=== PATIENT | female | born 1995 | race Caucasian/White ===

== ENCOUNTER 2016-09-26 22:58 | Outpatient (CLI) | payer MEDICAID, OTHER ==
[~2016-09-26] VITALS: Ht 157.5 cm; Wt 104.1 kg
[~2016-09-26 22:58] MED LIST: CEPH-443 PO; ZOF8 PO
[2016-09-26 23:09] VITALS: BP 109/64; PULSE 106; RESP 18; Ht 157.5 cm; Wt 104.1 kg
--- NOTE | 2016-09-27 00:52 | RADRPT ---
PROCEDURE: US OB. CLINICAL INDICATION: Contractions TECHNIQUE: Pelvic ultrasound performed for biophysical profile. COMPARISON: No relevant examinations are available FINDINGS: Single intrauterine gestation present with heart rate at 139 beats per minute. Presentation is ceph alic. Placenta is fundal, grade II. Biophysical profile score is 8/8 (breathing=2, movement=2, ton e =2, fluid volume=2). Amniotic fluid volume is within normal limits, with ELIAN = 17.6 cm. RPTAT:HJJR IMPRESSION: Biophysical profile score 8/8. Physician Denisse Date Time Electronically viewed and signed by Physician Denisse on 09/27/2016 00:51 /
[2016-09-27 01:28] LABS: ADD UMIC YES; URINE BILIRUBIN (Dip) NEGATIVE (NEGATIVE); URINE BLOOD (Dip) 3+ (NEGATIVE); URINE COLOR YELLOW (YELLOW); URINE GLUCOSE (Dip) NEGATIVE (NEGATIVE); URINE KETONES (Dip) NEGATIVE (NEGATIVE); URINE LEUKOCYTE ESTERASE (Dip) 3+ (NEGATIVE); URINE NITRITE (Dip) NEGATIVE (NEGATIVE); URINE TOTAL PROTEIN (Dip) TRACE (NEGATIVE); URINE UROBILINOGEN (Dip) 0.2 E.U./dL (0.1-1.0)
[2016-09-27 01:45] LABS: BACTERIA,URINE MANY; SQUAMOUS EPITHELIAL CELL,UR MANY
[2016-09-27 01:46] LABS: MUCUS,URINE MANY
--- NOTE | 2016-09-27 02:05 | RADRPT ---
PROCEDURE: ULTRASOUND OBSTETRICAL CLINICAL INDICATION: 21-year-old female with contractions for cervical length evaluation. TECHNIQUE: Multiple sonographic images of the pelvis were obtained. The images were reviewed on a PACS workstation. COMPARISON: Ultrasound biophysical profile September 27, 2016; ultrasound OB May 28, 2015. FINDINGS: The cervix is closed with a length of 4.7 cm measured transvaginally. IMPRESSION: The cervix has a length of 4.7 cm. .Matt Nobles MD, MD Date Time Electronically viewed and signed by .Matt Nobles MD, MD on 09/27/2016 02:05 .Ashley/
--- NOTE | 2016-09-27 04:14 | PN ---
Triage Information Date/Time September 27, 2016 Weeks of Gestation 33 weeks and 6 days : 2 Para: 1 Diabetes: none Hypertention: none Additional information 21-year-old with IUP at 33 weeks and 6 days with a history of stillbirth and prior at 39 weeks and care with , here today with complaint of uterine contractions. Patient accompanied by her mother. She is very anxious due to past traumatic history. She denies any leaking of fluid, vaginal bleeding or decreased movement. She is complaining of low back pain and lower abdominal pain. Reports lower abdominal pain constant increase with changing in position. She denies any dysuria, frequency or urinary symptoms. Objective Vital Signs Date Time Temp Pulse Resp B/P Pulse Ox O2 Delivery O2 Flow Rate FiO2 09/26/16 23:09 97.9 106 18 109/64 Room Air Results/Medications Results 24 hrs Laboratory Tests Test 09/27/16 00:42 09/27/16 00:58 Urine Color YELLOW Urine Clarity CLEAR Urine pH 6.0 Urine Specific [place] 1.020 Urine Ketones NEGATIVE Urine Nitrite NEGATIVE Urine Bilirubin NEGATIVE Urine Urobilinogen 0.2 E.U./dL Urine Leukocyte Esterase 3+ H Urine Microscopic RBC 10-25 Urine Microscopic WBC >50 Urine Squamous Epithelial Cells MANY Urine Bacteria MANY Urine Mucus MANY Urine Hemoglobin 3+ H Urine Glucose NEGATIVE Urine Total Protein TRACE Fibronectin NEGATIVE Imaging Results PROCEDURE: US OB. CLINICAL INDICATION: Contractions TECHNIQUE: Pelvic ultrasound performed for biophysical profile. COMPARISON: No relevant examinations are available FINDINGS: Single intrauterine gestation present with heart rate at 139 beats per minute. Presentation is cephalic. Placenta is fundal, grade II. Biophysical profile score is 8/8 (breathing=2, movement=2, tone =2, fluid volume=2). Amniotic fluid volume is within normal limits, with ELIAN = 17.6 cm. RPTAT:HJJR IMPRESSION: Biophysical profile score 8/8 PROCEDURE: ULTRASOUND OBSTETRICAL CLINICAL INDICATION: 21-year-old female with contractions for cervical length evaluation. TECHNIQUE: Multiple sonographic images of the pelvis were obtained. The images were reviewed on a PACS workstation. COMPARISON: Ultrasound biophysical profile September 27, 2016; ultrasound OB May 28, 2015. FINDINGS: The cervix is closed with a length of 4.7 cm measured transvaginally. IMPRESSION: The cervix has a length of 4.7 cm Assessment/Plan IUP at 33 weeks and 6 days Lower abdominal pain, round ligament pain Patient was reassured Low back pain, due to Patient had been observed for a couple hours. No contractions seen on the monitor. testing reassuring. Patient was reassured No evidence of labor. She was given strict labor precaution and kick counts and follow-up in 2-3 days with her primary OB Patient verbalized understanding Recommended to have testing twice a week from now on until term with a plan to be induced at 39 weeks considering normal course Patient and her mother verbalized understanding.. She agreed to comply with instruction. JOSIE GUARDADO MD Sep 27, 2016 04:14
--- NOTE | 2016-09-27 05:15 | TRIAGE ---
OB Triage Datetime Report Generated by CPN: 09/27/2016 05:15 Datetime: 09/27/2016 03:27 Labor Evaluation Frequency: N/A Monitor Mode: External Resting Tone [place]: Relaxed Heart Rate FHR Baseline Rate: 135 Monitor Mode: External US FHR Baseline Changes: No Baseline Change Variability: Moderate 6-25 bpm Accelerations: 15X15 Decelerations: None Category: Category I Datetime: 09/27/2016 02:50 Labor Evaluation Frequency: N/A Monitor Mode: External Resting Tone [place]: Relaxed Interventions: Side to Side Heart Rate FHR Baseline Rate: 135 Monitor Mode: External US FHR Baseline Changes: No Baseline Change Variability: Moderate 6-25 bpm Accelerations: 15X15 Decelerations: None Category: Category I Comments: Loss of FHR contact d/t pt self-repositioning. Datetime: 09/27/2016 02:06 Temperature Route: Oral Pain Assessment Pain Scale: 0 Pain Presence: None/Denies Pain Type: N/A Datetime: 09/27/2016 01:50 Labor Evaluation Frequency: N/A Monitor Mode: External Resting Tone [place]: Relaxed Contraction Comments: Uterine activity noted. Heart Rate FHR Baseline Rate: 145 Monitor Mode: External US FHR Baseline Changes: No Baseline Change Variability: Moderate 6-25 bpm Accelerations: 15X15 Decelerations: None Category: Category I Comments: Periods of loss of FHR contact d/t pt self-repositioning Datetime: 09/27/2016 00:50 Labor Evaluation Frequency: N/A Monitor Mode: External Resting Tone [place]: Relaxed Contraction Comments: Uterine activity noted Heart Rate FHR Baseline Rate: 135 Monitor Mode: External US FHR Baseline Changes: No Baseline Change Variability: Moderate 6-25 bpm Accelerations: 15X15 Decelerations: None Category: Category I Comments: Periods of loss of FHR contact d/t pt self repositioning Datetime: 09/26/2016 23:50 Labor Evaluation Frequency: N/A Monitor Mode: External Resting Tone [place]: Relaxed Heart Rate FHR Baseline Rate: 135 Monitor Mode: External US FHR Baseline Changes: No Baseline Change Variability: Moderate 6-25 bpm Accelerations: 15X15 Decelerations: None Category: Category I Comments: Periods of loss of FHR contact d/t pt self-repositioning Datetime: 09/26/2016 23:17 EGA: 33.5 Datetime: 09/26/2016 23:10 Assessment Type: Triage Maternal Assessment Level of Consciousness: Fully Conscious DTR's/Clonus: DTRs 2+; No Clonus Headache: Denies Blurred Vision: No Respiratory Effort: Unlabored; Regular Rhythm; Equal Expansion Breath Sounds, Left: Clear and Equal Breath Sounds, Right: Clear and Equal Nausea/Vomiting: Denies RUQ Epigastric Pain: Denies Lower Extremities Edema: None Degree: None Upper Extremities Edema: None Degree: None Facial Edema: None Fall Risk Assessment History of Falling: (0) No Secondary Diagnosis: (0) No Ambulatory Aid: (0) Bedrest/Nurse Assist IV Therapy: (0) No Gait: (0) Normal/Bedrest/Immobile Mental Status: (0) Oriented to Own Ability Fall Score: 0 Fall Risk Score Definition: No Risk: No action required Datetime: 09/26/2016 23:08 Resting Tone [place]: Relaxed Datetime: 09/26/2016 23:01 Stage of : OB Triage Datetime: 09/26/2016 22:52 Time of Arrival: 09/26/2016 22:52 Arrived By: Wheelchair Arrived From: Emergency Dept Chief Complaint: CONTRACTIONS; ABDOMINAL PAIN; BACK PAIN Movement: Decreased Contractions: Irregular Time Contractions Began: 09/26/2016 10:00 Contractions: q 20-30min Rupture of Membranes: Denies Vaginal Bleeding: None Vaginal Discharge: Denies Recent Sexual Intercouse: Denies Abdominal Trauma: Not Applicable Patient Complaints: Contractions Time Provider Notified: 09/26/2016 23:53 Provider Notified: MD WAGNER Initial Plan: OBSERVATION, BPP, FFN, CERVICAL LENGTH, UA
== END 2016-09-27 03:34 | disposition home or self-care (01) ==
LOC: OBT 22:58 → L-D 23:01 → OBT 09-27 03:34
PROVIDERS: ATTEND Obstetrics & Gynecology
DX: O09.293 Supervision of pregnancy with other poor reproductive or obstetric history, third trimester (principal); R10.30 Lower abdominal pain, unspecified; R10.2 Pelvic and perineal pain; M54.5 Low back pain; O62.9 Abnormality of forces of labor, unspecified; O99.343 Other mental disorders complicating pregnancy, third trimester; F41.9 Anxiety disorder, unspecified; Z3A.33 33 weeks gestation of pregnancy
CPT/HCPCS: 76817; 76818; 81001; 82731; 87086; Z7500; G0463

== ENCOUNTER 2016-10-08 15:28 | Outpatient (CLI) | payer OTHER ==
[~2016-10-08] VITALS: Ht 157.5 cm; Wt 103.8 kg
[~2016-10-08 15:28] MED LIST changes: -ZOF8 PO
[2016-10-08 16:25] VITALS: Ht 157.5 cm; Wt 103.8 kg
[2016-10-08] MEDS ORDERED: PRENAT PO (16:27)
--- NOTE | 2016-10-08 17:02 | RADRPT ---
PROCEDURE: US OB biophysical profile. CLINICAL INDICATION: evaluation TECHNIQUE: Multiple sonographic images of the pelvis were obtained. The images were reviewed on a PACS workstation. COMPARISON: Obstetrical ultrasound from 09/27/2016 FINDINGS: There is a single viable intrauterine gestation. Cardiac activity is present with 146 beats per min sabino. There is a vertex presentation. The placenta is posterior and fundal. There is no evidence of placental abruption. There is a normal amount of amniotic fluid with an ELIAN = 13.6 cm. Biophysical profile: movement 2/2 tone 2/2. breathing 2/2 ELIAN 2/2 Total 11/27 RPTAT: AA . IMPRESSION: Normal biophysical profile. Physician Jacinda Date Time Electronically viewed and signed by Physician Jacinda on 10/08/2016 17:02 /
--- NOTE | 2016-10-08 17:04 | RADRPT ---
PROCEDURE: Obstetrical ultrasound CLINICAL INDICATION: HX OF DEMISE BABY TECHNIQUE: Multiple sonographic images of the pelvis were obtained. The images were reviewed on a PACS workstation. COMPARISON: Obstetrical ultrasound from 09/27/2016 FINDINGS: The cervix is not well visualized. There is a single viable intrauterine gestation. Cardiac activity is present with 143 beats per minute. There is a vertex presentation. The placenta is posterior and fundal. There is no evidence for an abruption or placenta previa. There is a normal amount of amniotic fluid with an ELIAN = 13.5 cm. Measurements were made in order to determine age. The results are as follows (cm): BPD =8.75 HC =31.69 AC =31.27 FL =6.81 Estimated gestational age by ultrasound of approximately 35 weeks, 2 days. The estimated date of delivery by ultrasound is 11/10/2016. Estimated gestational age by LMP of approximately 35 weeks, 3 days. The estimated date of delivery by LMP is 11/09/2016. EFW = 2619 grams (41st percentile) IMPRESSION: Single viable intrauterine gestation of approximately 35 weeks, 2 days . The estimated date of delivery is 11/10/2016 . Dating by ultrasound is within 1 day of dating by LMP. Cephalic presentation. Normal ELIAN. Estimated weight is in the 41st percentile. RPTAT: EE Physician Jacinda Date Time Electronically viewed and signed by Physician Jacinda on 10/08/2016 17:03 /
--- NOTE | 2016-10-08 17:15 | TRIAGE ---
OB Triage Datetime Report Generated by CPN: 10/08/2016 17:15 Datetime: 10/08/2016 15:43 Stage of : OB Triage Assessment Type: Triage Maternal Assessment Level of Consciousness: Fully Conscious DTR's/Clonus: DTRs 2+; No Clonus Headache: Denies Blurred Vision: No Respiratory Effort: Unlabored; Regular Rhythm; Equal Expansion Breath Sounds, Left: Clear and Equal Breath Sounds, Right: Clear and Equal Nausea/Vomiting: Denies RUQ Epigastric Pain: Denies Lower Extremities Edema: None Degree: None Upper Extremities Edema: None Degree: None Facial Edema: None Temperature Route: Axillary Fall Risk Assessment History of Falling: (0) No Secondary Diagnosis: (0) No Ambulatory Aid: (0) Bedrest/Nurse Assist IV Therapy: (0) No Gait: (0) Normal/Bedrest/Immobile Mental Status: (0) Oriented to Own Ability Fall Score: 0 Fall Risk Score Definition: No Risk: No action required Datetime: 10/08/2016 15:30 Time of Arrival: 10/08/2016 15:30 EGA: 35.3 Arrived By: Ambulatory Arrived From: Office Chief Complaint: NST, BPP, EFW Movement: Present Rupture of Membranes: Denies Vaginal Bleeding: None Vaginal Discharge: Denies Recent Sexual Intercouse: Denies Abdominal Trauma: Not Applicable Patient Complaints: None Time Provider Notified: 10/08/2016 17:10 Provider Notified: KRISTY Initial Plan: NST, BPP, EFW Datetime: 09/26/2016 23:17 EGA: 33.5 Datetime: 09/26/2016 23:10 Fall Score: 0 Fall Risk Score Definition: No Risk: No action required
--- NOTE | 2016-10-08 18:26 | CONS ---
Date/Time of Note Date/Time of Note DATE: 10/08/16 TIME: 18:06 Consultation Date/Type/Reason Admit Date/Time October 08, 2016 OB triage consult Reason for Consultation This patient is a 21 years old 2 para 1 who had a history of demise at age 39 during her past . on general examination her vital signs are basically within normal limits; blood pressure 103/74, pulse rate 99, respiration 18, Her abdomen is soft ,does not have much of a contraction ,baby appears to be in vertex presentation Constitutional: No chills, No diaphoresis, No disoriented, No febrile, No improved, No no complaints, No other, No poor po, No requiring IVF, No requiring O2 Eyes: discharge, No no complaints, No other, No pain, No redness, No visual change ENT: No bleeding, No congestion, No discharge, No dysphagia, No no complaints, No other, No pain, No sore throat Respiratory: No cough, No no complaints, No other, No pain, No pleuritic pain, No shortness of breath, No sputum, No wheezing Cardiovascular: No chest pain, No edema, No lightheadedness, No no complaints, No orthopenea, No other, No palpitations, No paroxysmal nocturnal dyspnea Gastrointestinal: No blood, No constipation, No decreased appetite, No diarrhea , No flatus, No nausea, No no complaints, No other, No pain, No passing stool, No vomiting Genitourinary: other (Due to lack of contractions the pelvic examination was not performed), No bleeding, No discharge, No dysuria, No flank pain, No hematuria, No no complaints Musculoskeletal: No back pain, No bone/joint pain, No neck pain, No no complaints, No other, No restricted range of motion, No swelling Skin: No bruising, No erythema, No laceration, No no complaints, No other, No pruritis, No rash, No skin lesions Neurologic: other (Her knee jerks reflexes normal), No confusion, No dizziness, No focal-weakness, No headache, No no complaints , No seizure, No syncope Endocrine: No dry skin, No no complaints, No other, No polydypsia, No polyuria , No temp intolerance Lymphatic: No adenopathy, No lymphadema, No no complaints, No other, No tender nodes Psychological: No anxiety, No confusion, No depression, No nl mood/affect, No no complaints, No other, No suicidal Additional Comments Her biophysical profile was 11/27 ELIAN is 13.5 cm Estimated weight was 2619 g With these positive finding patient was discharged home and will return later for another set of monitoring Social History Smoking Status: Never smoker RICKY IBARRA MD Oct 08, 2016 18:17
== END 2016-10-08 18:32 | disposition home or self-care (01) ==
LOC: OBT 15:28 → L-D 15:28 → OBT 18:32
PROVIDERS: ATTEND Obstetrics & Gynecology
DX: O09.293 Supervision of pregnancy with other poor reproductive or obstetric history, third trimester (principal); Z3A.35 35 weeks gestation of pregnancy
CPT/HCPCS: 76815; 76818

== ENCOUNTER 2016-10-10 22:00 | Outpatient (CLI) | payer OTHER ==
[~2016-10-10] VITALS: Ht 157.5 cm; Wt 104.8 kg
[~2016-10-10 22:00] MED LIST changes: -CEPH-443 PO; +PRENAT PO
[2016-10-10 22:24] VITALS: Ht 157.5 cm; Wt 104.8 kg
[2016-10-10 22:58] LABS: ADD SCAN DIFF NO
[2016-10-10 23:15] LABS: BASOPHILS % 0.3 % (0.0-2.0); EOSINOPHILS # 0.1 10^3/ul (0.0-0.5); HEMATOCRIT 33.2 % (37.0-47.0); HEMOGLOBIN 11.6 g/dl (12.0-16.0); LYMPHOCYTES # 1.9 10^3/ul (0.8-2.9); LYMPHOCYTES % 26.9 % (15.0-51.0); MEAN CORPUSCULAR HEMOGLOBIN 30.8 pg (29.0-33.0); MEAN CORPUSCULAR HGB CONC 34.9 g/dl (32.0-37.0); MEAN CORPUSCULAR VOLUME 88.1 fl (82.0-101.0); MEAN PLATELET VOLUME 10.7 fl (7.4-10.4); MONOCYTE # 0.5 10^3/ul (0.3-0.9); MONOCYTES % 6.7 % (0.0-11.0); NEUTROPHIL # 4.5 10^3/ul (1.6-7.5); NEUTROPHILS % 64.7 % (39.0-77.0); PLATELET COUNT 242 10^3/UL (140-415); RED BLOOD COUNT 3.77 10^6/ul (4.20-5.40); RED CELL DISTRIBUTION WIDTH 13.7 % (11.5-14.5); WHITE BLOOD COUNT 6.9 10^3/ul (4.8-10.8)
[2016-10-10 23:21] LABS: ALBUMIN/GLOBULIN RATIO 1.37; BILIRUBIN,INDIRECT 0.1 mg/dl (0-1.1); BILIRUBIN,TOTAL 0.1 mg/dl (0.2-1.3); CALCIUM 9.3 mg/dl (8.4-10.2); CREATININE 0.81 mg/dl (0.44-1.00); POTASSIUM 3.7 mmol/L (3.5-5.1); TOTAL PROTEIN 6.9 g/dl (6.1-8.1)
--- NOTE | 2016-10-10 23:32 | RADRPT ---
PROCEDURE: Ultrasound Biophysical profile with amniotic fluid index CLINICAL INDICATION: labor TECHNIQUE: Color and valdes-scale ultrasound images of an intrauterine gestation were obtained. COMPARISON: 10/08/2016 FINDINGS: A single live intrauterine gestation is identified in cephalic position with an estimated hear t rate of 143 beats per minute. The placenta is posterior and grade 1. ELIAN is 17.46 cm. movement 2/2. tone 2/2. breathing movement 2/2. Qualitative AFV 2/2 Total biophysical profile 11/27 IMPRESSION: 11/27 biophysical profile. Normal amniotic fluid index of 17.46 cm. RPTAT: HJES .Noe Nicole MD, MD Date Time Electronically viewed and signed by .Noe Nicole MD, on 10/10/2016 23:32 .S/
--- NOTE | 2016-10-11 00:07 | TRIAGE ---
OB Triage Datetime Report Generated by CPN: 10/11/2016 00:07 Datetime: 10/10/2016 23:57 Stage of : OB Triage Datetime: 10/10/2016 23:53 Labor Evaluation Frequency: X1 Monitor Mode: External Duration (sec)2399: 60 Pattern: Normal: <= 5 Contractions in 10 Minutes Heart Rate FHR Baseline Rate: 145 Monitor Mode: External US FHR Baseline Changes: No Baseline Change Variability: Moderate 6-25 bpm Datetime: 10/10/2016 23:33 Time of Arrival: 10/10/2016 21:58 EGA: 35.5 Arrived By: Ambulatory Arrived From: Home Chief Complaint: BIWEEKLY BPP FOR HX OF FD Movement: Present Contractions: Denies/Absent Rupture of Membranes: Denies Vaginal Discharge: Denies Recent Sexual Intercouse: Denies Abdominal Trauma: Not Applicable Patient Complaints: None Provider Notified: FAZILAT Initial Plan: NST/BPP Datetime: 10/10/2016 23:00 Labor Evaluation Frequency: NONE Monitor Mode: Palpation Pattern: Normal: <= 5 Contractions in 10 Minutes Resting Tone [place]: Relaxed Heart Rate FHR Baseline Rate: 145 Monitor Mode: External US FHR Baseline Changes: No Baseline Change Variability: Moderate 6-25 bpm Datetime: 10/10/2016 22:56 Monitor Mode: External Pattern: Normal: <= 5 Contractions in 10 Minutes Contraction Comments: TOCO REPLACED WITH DIFFERENT MONITOR PIECE Datetime: 10/10/2016 22:05 Assessment Type: Triage Maternal Assessment Level of Consciousness: Fully Conscious Headache: Denies Blurred Vision: No Respiratory Effort: Unlabored; Regular Rhythm; Equal Expansion Nausea/Vomiting: Denies RUQ Epigastric Pain: Denies Facial Edema: None Fall Risk Assessment History of Falling: (0) No Secondary Diagnosis: (0) No Ambulatory Aid: (0) Bedrest/Nurse Assist IV Therapy: (0) No Gait: (0) Normal/Bedrest/Immobile Mental Status: (0) Oriented to Own Ability Fall Score: 0 Fall Risk Score Definition: No Risk: No action required Datetime: 10/08/2016 16:34 Labor Evaluation Frequency: 0 Monitor Mode: External Heart Rate FHR Baseline Rate: 150 Monitor Mode: External US FHR Baseline Changes: No Baseline Change Variability: Moderate 6-25 bpm Accelerations: 15X15 Decelerations: None Category: Category I Pain Assessment Pain Presence: None/Denies Datetime: 10/08/2016 15:43 Temperature Route: Oral Fall Score: 0 Fall Risk Score Definition: No Risk: No action required Datetime: 10/08/2016 15:30 EGA: 35.3 Datetime: 09/26/2016 23:17 EGA: 33.5 Datetime: 09/26/2016 23:10 Fall Score: 0 Fall Risk Score Definition: No Risk: No action required
--- NOTE | 2016-10-11 01:03 | PN ---
Triage Information Date/Time Weeks of Gestation at 35+ wks ga with hx of demise with prior here for NST and BPP patient reports positive movement : 2 Para: 1 Diabetes: none Hypertention: none Additional information patient was complaining of itching- will R/O cholestasis of Objective Heart Rate: 140's Heart Rate Comments Reactive Contractions: None Results/Medications Result Diagram: 10/10/16223610/10/162236 Results 24 hrs Laboratory Tests Test 10/10/16 22:37 White Blood Count 6.9 Red Blood Count 3.77 L Hemoglobin 11.6 L Hematocrit 33.2 L Mean Corpuscular Volume 88.1 Mean Corpuscular Hemoglobin 30.8 Mean Corpuscular Hemoglobin Concent 34.9 Red Cell Distribution Width 13.7 Platelet Count 242 Mean Platelet Volume 10.7 #H Neutrophils % 64.7 Lymphocytes % 26.9 Monocytes % 6.7 Eosinophils % 1.0 Basophils % 0.3 Nucleated Red Blood Cells % 0.0 Neutrophils # 4.5 Lymphocytes # 1.9 Monocytes # 0.5 Eosinophils # 0.1 Basophils # 0.0 Nucleated Red Blood Cells # 0.0 Sodium Level 135 Potassium Level 3.7 Chloride Level 102 Carbon Dioxide Level 24 Anion Gap 13 Blood Urea Nitrogen 8 Creatinine 0.81 Glucose Level 88 Calcium Level 9.3 Total Bilirubin 0.1 L Direct Bilirubin 0.00 Indirect Bilirubin 0.1 Aspartate Amino Transf (AST/SGOT) 20 Alanine Aminotransferase (ALT/SGPT) 24 Alkaline Phosphatase 122 H Total Protein 6.9 Albumin 4.0 Globulin 2.90 Albumin/Globulin Ratio 1.37 Imaging Results PROCEDURE: Ultrasound Biophysical profile with amniotic fluid index CLINICAL INDICATION: labor TECHNIQUE: Color and valdes-scale ultrasound images of an intrauterine gestation were obtained. COMPARISON: 10/08/2016 FINDINGS: A single live intrauterine gestation is identified in cephalic position with an estimated heart rate of 143 beats per minute. The placenta is posterior and grade 1. ELIAN is 17.46 cm. movement 2/2. tone 2/2. breathing movement 2/2. Qualitative AFV 2/2 Total biophysical profile 11/27 IMPRESSION: 11/27 biophysical profile. Normal amniotic fluid index of 17.46 cm. RPTAT: HJES .Noe Nicole MD, Date Time Electronically viewed and signed by .Noe Nicole MD, on 10/10/2016 23:32 .S/ CC: SAMSON WAGNER M.D. Assessment/Plan NST reactive BPP 11/27 Return for repeat NST and BPP in 2 days Patient was counseled to be induced at 37 wks gestation VIJAY HUERTA MD Oct 11, 2016 01:03
== END 2016-10-11 | disposition home or self-care (01) ==
LOC: L-D 22:00 → OBT 22:00
PROVIDERS: ATTEND Obstetrics & Gynecology
DX: O26.893 Other specified pregnancy related conditions, third trimester (principal); L29.9 Pruritus, unspecified; Z3A.35 35 weeks gestation of pregnancy
CPT/HCPCS: 36415; 76818; 80053; 85025; G0463

== ENCOUNTER 2016-10-12 13:19 | Outpatient (CLI) | payer OTHER ==
[~2016-10-12] VITALS: Ht 157.5 cm; Wt 103.0 kg
[2016-10-12 13:36] VITALS: Ht 157.5 cm; Wt 103.0 kg
[2016-10-12 13:37] VITALS: BP 123/61; PULSE 100; RESP 16
--- NOTE | 2016-10-12 14:07 | RADRPT ---
PROCEDURE: OB ultrasound for biophysical profile CLINICAL INDICATION: Cholestasis. TECHNIQUE: Multiple sonographic images of the pelvis were obtained. Transabdominal view of the gr avid uterus are available for review. The images were reviewed on a PACS workstation. COMPARISON: 10/10/2016. FINDINGS: breathing movement = 2/2 tone = 2/2 motion = 2/2 Quantitative amniotic fluid volume = 2/2 ELIAN = 15.0 cm Single live intrauterine with cardiac activity at 133 beats per minute. There is a posterior lateral placenta without previa. IMPRESSION: 1. Single living intrauterine gestation in cephalic position. 2. Biophysical profile = 8/8. 3. ELIAN = 15.0 cm. RPTAT: AACC Physician Louis Date Time Electronically viewed and signed by Physician Louis on 10/12/2016 14:07 /
--- NOTE | 2016-10-12 17:00 | NSTRPT ---
NST Information Datetime Report Generated by CPN: 10/12/2016 17:00 Datetime: 10/12/2016 10:55 NST Information EGA: 36.0 Test Number: 5 Time on Monitor: 10/12/2016 11:23 Time off Monitor: 10/12/2016 11:58 NST Duration (Min): 35 Reason for NST: Previous Demise; Other Reason for NST Other: Hx Eva, IUFD @39wks Test and Monitor Explained: Monitor Explained; Test Explained; Verbalized Understanding Pulse: 111 Resp: 18 SBP: 109 DBP: 70 Test Evaluation NST Interventions: Reposition Patient Patient States Movement: Present Contraction Frequency: none FHR Baseline : 150 Variability: Moderate 6-25bpm Accelerations: 15X15 Decelerations: None FHR Category: Category I NST Results: Reactive Comments: 1200-Pt home undelivered with labor precautions, kick count instructions reviewed and follow up NST appt given. States understanding and denies futher questions at this time. Electronically Signed By E-Signature: with User ID: [id number] Datetime: 10/09/2016 11:05 NST Information EGA: 35.4 NST Duration (Min): 29 Datetime: 10/05/2016 13:06 NST Information EGA: 35.0 NST Duration (Min): 43 Datetime: 10/02/2016 14:18 NST Information EGA: 34.4 NST Duration (Min): 34 Datetime: 09/28/2016 14:56 NST Information EGA: 34.0
== END 2016-10-12 14:45 | disposition home or self-care (01) ==
LOC: OBT 13:19 → L-D 13:20 → OBT 14:45
PROVIDERS: ATTEND Obstetrics & Gynecology
DX: O26.613 Liver and biliary tract disorders in pregnancy, third trimester (principal); K83.1 Obstruction of bile duct; Z3A.01 Less than 8 weeks gestation of pregnancy
CPT/HCPCS: 76818; Z7500; G0463

== ENCOUNTER 2016-10-14 23:43 | Outpatient (CLI) | payer OTHER ==
--- NOTE | 2016-10-12 15:17 | PN ---
Triage Information Date/Time Weeks of Gestation 36 : 2 Para: 1 Objective Heart Rate Comments reactive Contractions: None Results/Medications Imaging Results BPP 8.8, ELIAN 15.0 cm Assessment/Plan at 36 weeks with h/o cholestasis -discharge home -f/u with OB JEUSS ITDWELL Oct 12, 2016 15:17
[~2016-10-14] VITALS: Ht 157.5 cm; Wt 105.2 kg
--- NOTE | 2016-10-14 23:51 | HP ---
Date/Time of Note Date/Time of Note DATE: 10/14/16 TIME: 23:48 OB - History Hx of Present Free Text/Dictation 21 YO with h/o IUFD and also diagnosed with Cholestasis reports to L&D for antepartum testing. she reports that she has appt for IOL in 5 days. Care: [facility] Ultrasounds: Normal mid trimester US Obstetrical Complications: None, Other (cholestasis of and h/o IUFD) Medical Complications: None Past Family/Social History * Past Medical, Surgical, Family and Obstetric Histories reviewed from chart. OB Admission Exam Physical Exam HEENT: WNL Heart: Rhythm Normal Lungs: Clear, Equal Abdomen: WNL Extremities: Normal Reflexes: Normal OB Assessment/Plan Other Assessment: 21 YO with h/o IUFD and also diagnosed with Cholestasis reports to L&D for antepartum testing. Other plan: antepartum testing FERNANDEZ WHITFIELD MD Oct 14, 2016 23:51
[2016-10-14 23:54] VITALS: Ht 157.5 cm; Wt 105.2 kg
--- NOTE | 2016-10-15 00:30 | RADRPT ---
PROCEDURE: ULTRASOUND BIOPHYSICAL PROFILE CLINICAL INDICATION: 21-year-old female for viability. TECHNIQUE: Multiple sonographic images were obtained in order to perform a biophysical profile The images were reviewed on a PACS workstation. COMPARISON: Ultrasound biophysical profile October 12, 2016. FINDINGS: There is a single viable intrauterine gestation. There is a vertex presentation. Cardiac activity i s present at 161 beats per minute. The placenta is fundal. The results of the biophysical profile a re as follows: breathing movement = 2/2 Gross body movement = 2/2 tone = 2/2 Qualitative amniotic fluid volume = 2/2 Amniotic fluid index equals 18 point a cm. This yields a biophysical profile score of 8/8. IMPRESSION: Biophysical profile score is 8/8. .Matt Nobles MD, MD Date Time Electronically viewed and signed by .Matt Nobles MD, on 10/15/2016 00:29 .M/
--- NOTE | 2016-10-15 01:17 | TRIAGE ---
OB Triage Datetime Report Generated by CPN: 10/15/2016 01:17 Datetime: 10/15/2016 23:50 Stage of : OB Triage Temperature Route: Oral Labor Evaluation Frequency: NONE Monitor Mode: External Heart Rate FHR Baseline Rate: 155 Monitor Mode: External US Variability: Moderate 6-25 bpm Accelerations: 15X15 Decelerations: None Category: Category I Pain Assessment Pain Presence: None/Denies Datetime: 10/15/2016 00:15 Stage of : OB Triage Labor Evaluation Frequency: NONE Monitor Mode: External Quality: Mild Heart Rate FHR Baseline Rate: 155 Monitor Mode: External US Variability: Moderate 6-25 bpm Accelerations: 15X15 Decelerations: None Category: Category I Datetime: 10/14/2016 23:38 Time of Arrival: 10/14/2016 23:38 EGA: 36.2 Arrived By: Wheelchair Arrived From: Home Chief Complaint: PT COME IN FOR NST, BPP PER MD ORDER. Movement: Present Contractions: Denies/Absent Contractions: N/A Rupture of Membranes: Denies Vaginal Discharge: Denies Recent Sexual Intercouse: Denies Abdominal Trauma: Not Applicable Patient Complaints: None Time Provider Notified: 10/14/2016 23:45 Provider Notified: Dr Almanza Initial Plan: TOCO AND EFM Datetime: 10/12/2016 13:33 Assessment Type: Triage Maternal Assessment Level of Consciousness: Fully Conscious DTR's/Clonus: DTRs 2+; No Clonus Headache: Denies Blurred Vision: No Respiratory Effort: Unlabored; Regular Rhythm; Equal Expansion Breath Sounds, Left: Clear and Equal Breath Sounds, Right: Clear and Equal Nausea/Vomiting: Denies RUQ Epigastric Pain: Denies Facial Edema: None Fall Risk Assessment History of Falling: (0) No Secondary Diagnosis: (0) No Ambulatory Aid: (0) Bedrest/Nurse Assist IV Therapy: (0) No Gait: (0) Normal/Bedrest/Immobile Mental Status: (0) Oriented to Own Ability Fall Score: 0 Fall Risk Score Definition: No Risk: No action required Datetime: 10/12/2016 13:31 Time of Arrival: 10/12/2016 13:10 EGA: 36.0 Arrived By: Ambulatory Arrived From: Home Chief Complaint: Pt. came to ob triage from NST clinic for biweekly u/s bpp due to cholestasis Chief Complaint: follow up for nst bpp Movement: Present Vaginal Bleeding: None Vaginal Bleeding: None Patient Complaints: None Patient Complaints: None Time Provider Notified: 10/12/2016 14:24 Provider Notified: Initial Plan: bpp Datetime: 10/10/2016 23:33 EGA: 35.5 Datetime: 10/10/2016 22:05 Fall Score: 0 Fall Risk Score Definition: No Risk: No action required Datetime: 10/08/2016 15:43 Fall Score: 0 Fall Risk Score Definition: No Risk: No action required Datetime: 10/08/2016 15:30 EGA: 35.3 Datetime: 09/26/2016 23:17 EGA: 33.5 Datetime: 09/26/2016 23:10 Fall Score: 0 Fall Risk Score Definition: No Risk: No action required
== END 2016-10-15 01:10 | disposition home or self-care (01) ==
LOC: OBT 23:43 → L-D 23:45 → OBT 10-15 01:10
PROVIDERS: ATTEND Obstetrics & Gynecology
DX: O26.613 Liver and biliary tract disorders in pregnancy, third trimester (principal); K83.1 Obstruction of bile duct; Z3A.36 36 weeks gestation of pregnancy
CPT/HCPCS: 76818; Z7500; G0463

== ENCOUNTER 2016-10-17 20:45 | Inpatient (IN) | payer OTHER ==
[~2016-10-17] VITALS: Ht 157.5 cm; Wt 104.3 kg
--- NOTE | 2016-10-17 22:05 | RADRPT ---
PROCEDURE: US OB biophysical profile. CLINICAL INDICATION: History of stillbirth. Biophysical profile requested. TECHNIQUE: Multiple sonographic images of the pelvis were obtained. The images were reviewed on a PACS workstation. COMPARISON: None FINDINGS: Presentation: Cephalic. Cardiac activity is present with 142 0.5 beats per minute beats per minute. The placenta is posterior. Grade 1. MVP: Amniotic fluid index: 22.2 cm Biophysical profile: movement 2/2 tone 2/2. breathing 2/2 ELIAN 2/2 Total 11/27 IMPRESSION: 1. Normal biophysical profile. 2. Amniotic fluid index: 22.2 cm RPTAT:AAJJ . Physician Carol Date Time Electronically viewed and signed by Ronak Reid Physician on 10/17/2016 22:04 PATRIZIA/
[2016-10-17] MEDS ORDERED: ACETAMINOPHEN 325 MG TAB PO PRN (23:00)
--- NOTE | 2016-10-18 00:35 | TRIAGE ---
OB Triage Datetime Report Generated by CPN: 10/18/2016 00:35 Datetime: 10/18/2016 00:00 Stage of : OB Triage Labor Evaluation Frequency: NONE Monitor Mode: External Heart Rate FHR Baseline Rate: 145 Monitor Mode: External US Variability: Moderate 6-25 bpm Accelerations: 15X15 Decelerations: None Category: Category I Pain Assessment Pain Presence: None/Denies Datetime: 10/17/2016 23:00 Stage of : OB Triage Labor Evaluation Frequency: NONE Monitor Mode: External Heart Rate FHR Baseline Rate: 135 Monitor Mode: External US Variability: Moderate 6-25 bpm Accelerations: 15X15 Decelerations: None Category: Category I Pain Assessment Pain Presence: None/Denies Datetime: 10/17/2016 22:40 Stage of : OB Triage Datetime: 10/17/2016 22:30 Stage of : OB Triage Datetime: 10/17/2016 22:00 Stage of : OB Triage Labor Evaluation Frequency: NONE Monitor Mode: External Heart Rate FHR Baseline Rate: 145 Monitor Mode: External US Variability: Moderate 6-25 bpm Accelerations: 15X15 Decelerations: None Category: Category I Pain Assessment Pain Presence: None/Denies Datetime: 10/17/2016 21:50 Stage of : OB Triage Comments: EFM READJUSTED AFTER US Datetime: 10/17/2016 20:58 Stage of : OB Triage Comments: MONITORS OFF, US TECH AT BEDSIDE FOR BPP. Datetime: 10/17/2016 20:57 Stage of : OB Triage Labor Evaluation Frequency: NONE Monitor Mode: External Heart Rate FHR Baseline Rate: 155 Monitor Mode: External US Variability: Moderate 6-25 bpm Accelerations: 15X15 Decelerations: None Pain Assessment Pain Presence: None/Denies Datetime: 10/17/2016 20:45 Stage of : OB Triage Datetime: 10/17/2016 20:39 Arrived By: Ambulatory Arrived From: Home Chief Complaint: PT COME IN FOR ROUTINE BPP _ NST Movement: Present Contractions: Denies/Absent Rupture of Membranes: Denies Vaginal Discharge: Denies Recent Sexual Intercouse: Denies Abdominal Trauma: Not Applicable Patient Complaints: Other Time Provider Notified: 10/18/2016 20:45 Initial Plan: TOCO AND EFM APPLIED, NOTIFY MD FOR BPP Datetime: 10/15/2016 00:58 Stage of : OB Triage Monitor Mode: External Pattern: Normal: <= 5 Contractions in 10 Minutes Resting Tone [place]: Relaxed Heart Rate FHR Baseline Rate: 150 Monitor Mode: External US Variability: Moderate 6-25 bpm Accelerations: 15X15 Decelerations: None Category: Category I Datetime: 10/14/2016 23:51 Stage of : OB Triage Datetime: 10/14/2016 23:38 EGA: 36.2 Datetime: 10/12/2016 13:33 Fall Risk Assessment Fall Score: 0 Fall Risk Score Definition: No Risk: No action required Datetime: 10/12/2016 13:31 EGA: 36.0 Datetime: 10/10/2016 23:33 EGA: 35.5 Datetime: 10/10/2016 22:05 Fall Risk Assessment Fall Score: 0 Fall Risk Score Definition: No Risk: No action required Datetime: 10/08/2016 15:43 Fall Risk Assessment Fall Score: 0 Fall Risk Score Definition: No Risk: No action required Datetime: 10/08/2016 15:30 EGA: 35.3 Datetime: 09/26/2016 23:17 EGA: 33.5 Datetime: 09/26/2016 23:10 Fall Risk Assessment Fall Score: 0 Fall Risk Score Definition: No Risk: No action required
--- NOTE | 2016-10-18 11:28 | RADRPT ---
PROCEDURE: US biophysical profile. CLINICAL INDICATION: History of spontaneous . TECHNIQUE: Multiple sonographic images of the uterus were obtained. The images were revi ewed on a PACS workstation. COMPARISON: 10/17/2016. FINDINGS: There is a single live intrauterine gestation. heart rate is 163 beats per minute. The position is cephalic. The placenta is posterior right grade II with no abruption or previa. The ELIAN is 27.3 cm. (Normal = 5-20 cm.) Breathing Movement: 2 Gross Body Movement: 2 Tone: 2 Qualitative Amniotic Fluid Volume: 2 TOTAL: 8 IMPRESSION: 1. The biophysical score is 8/8. RPTAT: QQ .Jose Bacon MD, MD Date Time Electronically viewed and signed by .Jose Bacon MD, on 10/18/2016 11:28 .R/
[2016-10-18] MEDS: LACTATED RINGER'S 1,000 ML IV SCH ×2 (15:05→22:18)
[2016-10-18 15:20] LABS: BASOPHILS % 0.2 % (0.0-2.0); EOSINOPHILS # 0.1 10^3/ul (0.0-0.5); EOSINOPHILS % 0.9 % (0.0-7.0); HEMATOCRIT 33.1 % (37.0-47.0); HEMOGLOBIN 11.6 g/dl (12.0-16.0); LYMPHOCYTES # 1.6 10^3/ul (0.8-2.9); LYMPHOCYTES % 24.5 % (15.0-51.0); MEAN CORPUSCULAR HEMOGLOBIN 30.7 pg (29.0-33.0); MEAN CORPUSCULAR VOLUME 87.6 fl (82.0-101.0); MEAN PLATELET VOLUME 10.7 fl (7.4-10.4); MONOCYTE # 0.4 10^3/ul (0.3-0.9); MONOCYTES % 6.5 % (0.0-11.0); NEUTROPHIL # 4.3 10^3/ul (1.6-7.5); NEUTROPHILS % 67.6 % (39.0-77.0); PLATELET COUNT 202 10^3/UL (140-415); RED BLOOD COUNT 3.78 10^6/ul (4.20-5.40); RED CELL DISTRIBUTION WIDTH 14.2 % (11.5-14.5); WHITE BLOOD COUNT 6.4 10^3/ul (4.8-10.8)
[2016-10-18 15:40] LABS: INR 0.97; PROTIME 12.9 Sec (12.2-14.2)
[2016-10-18 15:41] LABS: PARTIAL THROMBOPLASTIN TIME 27.5 Sec (25.0-35.0)
[2016-10-18 21:11] VITALS: Ht 157.5 cm; Wt 104.3 kg
[2016-10-19] MEDS: PRENATAL VITAMIN PO SCH (08:53)
[2016-10-19 10:20] LABS: ADD UMIC YES; UR ASCORBIC ACID NEGATIVE (NEGATIVE); UR BACTERIA FEW /HPF (NONE SEEN); UR BILIRUBIN (Dip) NEGATIVE (NEGATIVE); UR BLOOD (Dip) 2+ mg/dL (NEGATIVE); UR CLARITY CLOUDY (CLEAR); UR COLOR YELLOW (YELLOW); UR GLUCOSE (Dip) NEGATIVE (NEGATIVE); UR KETONES (Dip) NEGATIVE (NEGATIVE); UR LEUKOCYTE ESTERASE (Dip) 3+ Leu/ul (NEGATIVE); UR NITRITE (Dip) NEGATIVE (NEGATIVE); UR RBC 37 /HPF (0-5); UR SPECIFIC GRAVITY (Dip) 1.011 (1.003-1.030); UR SQUAMOUS EPITHELIAL CELL FEW /HPF (FEW); UR TOTAL PROTEIN (Dip) NEGATIVE (NEGATIVE); UR UROBILINOGEN (Dip) NEGATIVE (NEGATIVE); UR WBC CLUMPS FEW /HPF (NONE SEEN)
[2016-10-19 11:15] LABS: BASOPHILS % 0.2 % (0.0-2.0); EOSINOPHILS # 0.1 10^3/ul (0.0-0.5); EOSINOPHILS % 0.9 % (0.0-7.0); HEMATOCRIT 32.1 % (37.0-47.0); HEMOGLOBIN 11.1 g/dl (12.0-16.0); LYMPHOCYTES # 1.5 10^3/ul (0.8-2.9); MEAN CORPUSCULAR HEMOGLOBIN 30.4 pg (29.0-33.0); MEAN CORPUSCULAR HGB CONC 34.6 g/dl (32.0-37.0); MEAN CORPUSCULAR VOLUME 87.9 fl (82.0-101.0); MEAN PLATELET VOLUME 10.4 fl (7.4-10.4); MONOCYTE # 0.4 10^3/ul (0.3-0.9); NEUTROPHILS % 67.6 % (39.0-77.0); PLATELET COUNT 184 10^3/UL (140-415); RED BLOOD COUNT 3.65 10^6/ul (4.20-5.40); RED CELL DISTRIBUTION WIDTH 14.5 % (11.5-14.5); WHITE BLOOD COUNT 5.9 10^3/ul (4.8-10.8)
[2016-10-19 11:34] LABS: ADD SCAN DIFF NO
[2016-10-19] MEDS ORDERED: CEFAZOLIN 1 GM/50 ML (PMX) 50 ML IVPB SCH (15:00)
[2016-10-19] MEDS ORDERED: DIPHENHYDRAMINE 50 MG INJ IM ONE (23:00)
--- NOTE | 2016-10-20 09:41 | HP ---
Date/Time of Note Date/Time of Note DATE: 10/20/16 TIME: 09:39 OB - History Hx of Present Free Text/Dictation @37+wks GA with Hx of IUFD@39 wks .Polyhydramnios ELIAN 27 D/w she will be delivered at 38 wks And she will be monitored in the hospital for any possible cord accidents : 2 Para: 0 Past Family/Social History * Past Medical, Surgical, Family and Obstetric Histories reviewed from chart. OB Admission Exam Physical Exam Heart: Rhythm Normal Abdomen: WNL Extremities: Normal Membranes: Intact Heart Rate: 140's Accelerations: Accelerations Present Decelerations: No Decelerations Varibility: Moderate Contractions on Admission: None Last 72 hours Lab Results CBC & BMP 10/18/16 15:05 10/19/16 10:25 OB Assessment/Plan Reason for admission: observation Plan: Expectant Management Other plan: D/W Delivery is recommended at 38 weeks Due to polyhydramnios ,patient is admitted and monitored to avoided any cord accidents SAMSON WAGNER M.D. Oct 20, 2016 09:41
--- NOTE | 2016-10-20 09:43 | QN ---
Documentation Comment 37+wks +FM No Vb No LOF No CTXs NST reassuring [place] No mCTXs Pelvic Deferre --->Close Observation SAMSON WAGNER M.D. Oct 20, 2016 09:43
--- NOTE | 2016-10-20 09:43 | QN ---
Documentation Comment Late entry Note 10/19/16 38+wks +FM No Vb No LOF No CTXs NST reassuring [place] No mCTXs Pelvic Deferre --->Close Observation SAMSON WAGNER M.D. Oct 20, 2016 09:42
[2016-10-20] MEDS: PRENATAL VITAMIN PO SCH (10:10)
[2016-10-20 11:32] LABS: BASOPHILS % 0.2 % (0.0-2.0); EOSINOPHILS # 0.1 10^3/ul (0.0-0.5); EOSINOPHILS % 0.8 % (0.0-7.0); HEMATOCRIT 34.6 % (37.0-47.0); HEMOGLOBIN 11.8 g/dl (12.0-16.0); LYMPHOCYTES # 1.5 10^3/ul (0.8-2.9); LYMPHOCYTES % 23.9 % (15.0-51.0); MEAN CORPUSCULAR HEMOGLOBIN 30.3 pg (29.0-33.0); MEAN CORPUSCULAR HGB CONC 34.1 g/dl (32.0-37.0); MEAN CORPUSCULAR VOLUME 88.9 fl (82.0-101.0); MEAN PLATELET VOLUME 10.7 fl (7.4-10.4); MONOCYTE # 0.4 10^3/ul (0.3-0.9); MONOCYTES % 5.7 % (0.0-11.0); NEUTROPHIL # 4.2 10^3/ul (1.6-7.5); NEUTROPHILS % 68.8 % (39.0-77.0); PLATELET COUNT 206 10^3/UL (140-415); RED BLOOD COUNT 3.89 10^6/ul (4.20-5.40); RED CELL DISTRIBUTION WIDTH 14.5 % (11.5-14.5); WHITE BLOOD COUNT 6.2 10^3/ul (4.8-10.8)
[2016-10-20 11:48] LABS: ALBUMIN 3.8 g/dl (3.3-4.9); ALBUMIN/GLOBULIN RATIO 1.22; BILIRUBIN,INDIRECT 0.1 mg/dl (0-1.1); BILIRUBIN,TOTAL 0.1 mg/dl (0.2-1.3); CALCIUM 9.5 mg/dl (8.4-10.2); CREATININE 0.62 mg/dl (0.44-1.00); POTASSIUM 3.8 mmol/L (3.5-5.1); TOTAL PROTEIN 6.9 g/dl (6.1-8.1); URIC ACID 4.2 mg/dl (3.1-7.9)
[2016-10-21] MEDS: PRENATAL VITAMIN PO SCH (09:36)
[2016-10-22] MEDS: PRENATAL VITAMIN PO SCH (09:20)
--- NOTE | 2016-10-22 22:22 | QN ---
Documentation Comment 37+wks +FM No Vb No LOF No CTXs NST reassuring [place] No mCTXs Pelvic Deferre --->Close Observation SAMSON WAGNER M.D. Oct 22, 2016 22:22
--- NOTE | 2016-10-23 01:20 | NSTRPT ---
NST Information Datetime Report Generated by CPN: 10/23/2016 01:19 Datetime: 10/17/2016 10:25 NST Information EGA: 36.5 Test Number: 6 Time on Monitor: 10/17/2016 10:54 Time off Monitor: 10/17/2016 11:22 NST Duration (Min): 28 Test and Monitor Explained: Monitor Explained; Test Explained; Verbalized Understanding; Breastfee ding Info Given Pulse: 94 Resp: 18 SBP: 108 DBP: 79 Test Evaluation NST Interventions: Reposition Patient Patient States Movement: Present Contraction Frequency: none FHR Baseline : 130 Variability: Moderate 6-25bpm Accelerations: 15X15 FHR Category: Category I NST Results: Reactive Comments: NST ONLY. 1130-Pt home undelivered with PTL precautions. Follow up NST appointment given . Kick Count instructions reviewed. Pt states understanding. No futher questions asked. Electronically Signed By E-Signature: with User ID: [id number] Datetime: 10/12/2016 10:55 NST Information EGA: 36.0 NST Duration (Min): 35 Datetime: 10/09/2016 11:05 NST Information EGA: 35.4 NST Duration (Min): 29 Datetime: 10/05/2016 13:06 NST Information EGA: 35.0 NST Duration (Min): 43 Datetime: 10/02/2016 14:18 NST Information EGA: 34.4 NST Duration (Min): 34 Datetime: 09/28/2016 14:56 NST Information EGA: 34.0
[2016-10-23] MEDS: PRENATAL VITAMIN PO SCH (10:13)
--- NOTE | 2016-10-24 00:44 | QN ---
Documentation Comment lAte Entry Note 10/23/16 37+wks +FM No Vb No LOF No CTXs NST reassuring [place] No mCTXs Pelvic Deferre --->Close Observation SAMSON WAGNER M.D. Oct 24, 2016 00:44
[2016-10-24] MEDS: PRENATAL VITAMIN PO SCH (10:03)
--- NOTE | 2016-10-24 23:17 | QN ---
Documentation Comment Patient denies any leaking of fluid, vaginal bleeding or decreased movement. She denies any complaint. Denies any contractions. She is comfortable in bed. Denies any depressive symptoms. Partner at bedside. Has questions regarding her modes of delivery and induction that has been answered. Physical examination: General appearance: Alert and oriented 4. Does not appear to be in any acute distress. Mood congruent. No evidence of depressive symptoms Abdomen: Soft, gravid, fundal height consistent with gestational age. No uterine tenderness, NST: Category 1 No contractions Pelvic exam deferred IUP at 37 weeks and 5 days History of IUFD, prior poor outcome Polyhydramnios Recommended by perinatologist to be delivered at 38 weeks Patient understand the plan Has some questions regarding induction. Modes of induction including Pitocin versus Cervidil versus Cytotec or Otoole balloon will be determined at the time of induction and by cervical examination. This has been discussed with the patient Risk and benefits of induction and pros and cons of each modes discussed Patient verbalized understanding. Continue inpatient management JOSIE GUARDADO MD Oct 24, 2016 23:16
[2016-10-25] MEDS: PRENATAL VITAMIN PO SCH (09:00)
[2016-10-25 20:02] LABS: ADD SCAN DIFF NO
[2016-10-25 20:06] LABS: BASOPHILS % 0.3 % (0.0-2.0); EOSINOPHILS # 0.1 10^3/ul (0.0-0.5); EOSINOPHILS % 0.8 % (0.0-7.0); HEMATOCRIT 37.6 % (37.0-47.0); HEMOGLOBIN 13.1 g/dl (12.0-16.0); LYMPHOCYTES # 2.4 10^3/ul (0.8-2.9); LYMPHOCYTES % 29.9 % (15.0-51.0); MEAN CORPUSCULAR HEMOGLOBIN 30.6 pg (29.0-33.0); MEAN CORPUSCULAR HGB CONC 34.8 g/dl (32.0-37.0); MEAN CORPUSCULAR VOLUME 87.9 fl (82.0-101.0); MEAN PLATELET VOLUME 10.6 fl (7.4-10.4); MONOCYTE # 0.5 10^3/ul (0.3-0.9); MONOCYTES % 6.4 % (0.0-11.0); NEUTROPHIL # 4.9 10^3/ul (1.6-7.5); PLATELET COUNT 226 10^3/UL (140-415); RED BLOOD COUNT 4.28 10^6/ul (4.20-5.40); RED CELL DISTRIBUTION WIDTH 14.3 % (11.5-14.5); WHITE BLOOD COUNT 7.9 10^3/ul (4.8-10.8)
[2016-10-25 20:38] LABS: INR 0.88; PROTIME 11.9 Sec (12.2-14.2); PT RATIO 0.9
[2016-10-25 20:39] LABS: PARTIAL THROMBOPLASTIN TIME 27.4 Sec (25.0-35.0)
[2016-10-25] MEDS ORDERED: NA PHOSPHATE/BIPHOS 133 ML ENEMA PR ONE (22:30)
[2016-10-26 02:51] VITALS: BP 102/95; PULSE 95; RESP 16
[2016-10-26] MEDS ORDERED: LIDOCAINE 1% (MPF) 30 ML INJ INJ PRN (03:00)
[2016-10-26] MEDS ORDERED: MISOPROSTOL 200 MCG TAB PR PRN (03:00)
[2016-10-26] MEDS ORDERED: AMPICILLIN 2 GM/NS (PMX) 100 ML IV ONE (03:00)
[2016-10-26] MEDS ORDERED: OXYTOCIN 30 UNITS/LR 500 ML IV PRN (03:00)
[2016-10-26] MEDS: LACTATED RINGER'S 1,000 ML IV SCH ×2 (03:00→13:02)
[2016-10-26] MEDS ORDERED: DINOPROSTONE 10 MG VAG SUPP VAG ONE (03:00)
[2016-10-26] MEDS ORDERED: METHYLERGONOVINE 0.2 MG INJ IM PRN (03:00)
[2016-10-26] MEDS ORDERED: OXYTOCIN 30 UNITS/LR 500 ML IV SCH ×2 (03:00)
[2016-10-26] MEDS ORDERED: IBUPROFEN 600 MG TAB PO PRN (03:00)
[2016-10-26] MEDS ORDERED: CARBOPROST 250 MCG INJ IM PRN (03:00)
[2016-10-26] MEDS ORDERED: BUTORPHANOL 2 MG INJ IV PRN (03:00)
[2016-10-26] MEDS: AMPICILLIN 1 GM/NS (PMX) 50 ML IV SCH ×5 (06:42→23:00)
[2016-10-26] MEDS: PRENATAL VITAMIN PO SCH (09:00)
[2016-10-26] MEDS ORDERED: LACTATED RINGER'S 1,000 ML IV PRN (14:00)
[2016-10-26] MEDS ORDERED: LACTATED RINGER'S 1,000 ML IV ONE (15:53)
[2016-10-26] MEDS ORDERED: METOCLOPRAMIDE 10 MG INJ IV ONE (16:00)
[2016-10-26] MEDS ORDERED: CITRIC ACID/SODIUM CITRATE 15 ML CUP PO ONE (16:00)
[2016-10-26] MEDS ORDERED: FAMOTIDINE 20 MG INJ IV ONE (16:00)
[2016-10-26] MEDS ORDERED: CEFAZOLIN 2 GM/50 ML (PMX) 50 ML IVPB ONE (16:00)
[2016-10-26] MEDS ORDERED: morphine SULFATE/PF (10 MG/10 ML) INJ ONE (20:52)
[2016-10-26] MEDS ORDERED: FENTAnyl 50 MCG/ML VIAL ONE (20:52)
[2016-10-26] MEDS ORDERED: PHENYLephrine (100 MCG/ML) 5ML SYG ONE ×3 (21:12→21:53)
[2016-10-26] MEDS ORDERED: EPHEDrine SULFATE 50 MG/5 ML SYG ONE (21:20)
[2016-10-26] MEDS ORDERED: ONDANSETRON 4 MG INJ ONE (21:42)
[2016-10-26] MEDS ORDERED: OXYTOCIN 30 UNITS/LR 500 ML IV ONE (21:42)
[2016-10-26] MEDS ORDERED: HYDROmorphONE (0.2 MG/ML) 10ML SYG IV PRN (22:00)
[2016-10-26] MEDS ORDERED: MEPERIDINE 25 MG INJ IV PRN (22:00)
[2016-10-26] MEDS ORDERED: FENTAnyl 50 MCG/ML VIAL IV PRN (22:00)
[2016-10-26] MEDS ORDERED: KETOROLAC 30 MG INJ IV PRN (22:00)
[2016-10-26] MEDS ORDERED: HYDROmorphONE 1 MG/ML SYG IV PRN ×2 (22:00)
[2016-10-26] MEDS ORDERED: DIPHENHYDRAMINE 50 MG INJ IV PRN ×2 (22:00)
[2016-10-26] MEDS ORDERED: ZOLPIDEM 5 MG TAB PO PRN (22:00)
[2016-10-26] MEDS ORDERED: ONDANSETRON 4 MG INJ IV PRN ×2 (22:00)
[2016-10-26] MEDS ORDERED: NALOXONE (0.4 MG/ML) INJ IV PRN (22:00)
[2016-10-26] MEDS ORDERED: PROCHLORPERAZINE 10 MG INJ IV PRN ×2 (22:00)
--- NOTE | 2016-10-26 22:52 | OPR ---
Operative Report Planned Procedure Free Text/Dictation pt declines further trial of labor and strongly desires to have a primary c/ section vaginal delivery vs primary c/section extensively discussed with patient Procedure date Oct 26, 2016 Procedure(s) Repeat c/section Performed by: SAMSON WAGNER M.D. Assisting provider: JOSIE GUARDADO MD Anesthesiologist: ALEX MTZ MD Anesthesia Type: spinal Procedure Description Under satisfactory [] anesthesia, the patient was prepped and draped and placed in a supine position, tilted to the left. Pfannenstiel incision was made, carried through the subcutaneous tissue. Bleeders brought under control with electrocautery. Fascia incised to the length of the incision. Rectus muscles from the fascia, divided midline. Peritoneum exposed, entered through a transverse incision. Exploration of abdomen revealed gravid uterus. Bladder flap was developed. Transverse incision was made in the lower segment of the uterus. Amniotic sac ruptured. [] amniotic fluid noted. [] Nasal oropharyngeal suction was performed. The baby was handed to the team for immediate attention. The placenta was delivered manually intact. Uterine cavity was cleaned with wet sponge and drainage established. Uterus closed in 2 layers using [] in continuous fashion. Peritoneal cavity irrigated with warm saline. Sponge, needle and instrument count reported to be correct. Abdominal peritoneum closed with [] continuously. Rectus muscle approximated with []. Fascia closed with [], and skin closed with dermoband. Estimated blood loss [600 ]mL. Urine bag contained []mL of urine Post-Procedure Findings: Live Baby [], Apgars [] and [], weight [], position [], [] presentation []cord. Specimen removed: Yes Complications: None Pt Condition post procedure: stable Disposition: PACU Physician Certification I, the undersigned physician, hereby certify that I have discussed the procedure described in this consent form with this patient (or the patient's legal patient care representative), including: * The risk and benefits of the procedure; * Any adverse reactions that may reasonably be expected to occur; * Any alternative efficacious methods of treatment which may be medically viable ; * The potential problems that may occur during recuperation; * Potential for blood transfusion and associated risks/benefits; and * Any research or economic interest I may have regarding this treatment. I further certify that the patient/legally responsible person was encouraged to ask question and that all questions were answered. SAMSON WAGNER M.D. Oct 26, 2016 22:51
[2016-10-27] MEDS ORDERED: LACTATED RINGER'S 1,000 ML IV SCH (00:08)
[2016-10-27 00:30] VITALS: BP 103/65; PULSE 75; RESP 18
[2016-10-27] MEDS ORDERED: METHYLERGONOVINE 0.2 MG INJ IM PRN (00:30)
[2016-10-27] MEDS ORDERED: LANOLIN 7 GM TUBE TOP PRN (00:30)
[2016-10-27] MEDS ORDERED: MISOPROSTOL 200 MCG TAB PR PRN (00:30)
[2016-10-27] MEDS ORDERED: OXYTOCIN 30 UNITS/LR 500 ML IV PRN (00:30)
[2016-10-27] MEDS ORDERED: CARBOPROST 250 MCG INJ IM PRN (00:30)
[2016-10-27 04:04] VITALS: BP 98/54; PULSE 87; RESP 18
[2016-10-27 07:44] LABS: ADD SCAN DIFF NO
[2016-10-27 07:48] LABS: BASOPHILS % 0.3 % (0.0-2.0); EOSINOPHILS % 0.2 % (0.0-7.0); HEMATOCRIT 29.9 % (37.0-47.0); HEMOGLOBIN 10.3 g/dl (12.0-16.0); LYMPHOCYTES # 1.6 10^3/ul (0.8-2.9); LYMPHOCYTES % 17.8 % (15.0-51.0); MEAN CORPUSCULAR HEMOGLOBIN 30.7 pg (29.0-33.0); MEAN CORPUSCULAR HGB CONC 34.4 g/dl (32.0-37.0); MEAN PLATELET VOLUME 10.8 fl (7.4-10.4); MONOCYTE # 0.5 10^3/ul (0.3-0.9); MONOCYTES % 5.4 % (0.0-11.0); NEUTROPHIL # 6.7 10^3/ul (1.6-7.5); NEUTROPHILS % 76.1 % (39.0-77.0); PLATELET COUNT 175 10^3/UL (140-415); RED BLOOD COUNT 3.36 10^6/ul (4.20-5.40); RED CELL DISTRIBUTION WIDTH 14.1 % (11.5-14.5); WHITE BLOOD COUNT 8.8 10^3/ul (4.8-10.8)
[2016-10-27 08:33] VITALS: BP 99/54; PULSE 86; RESP 20
[2016-10-27] MEDS: KETOROLAC 30 MG INJ IV PRN ×2 (09:13→19:53)
--- NOTE | 2016-10-27 10:10 | QN ---
Documentation Comment POD#1 is stable afebrile tolerates diet No VB +Flatus+Adequate urine VS stable Gen NAD Abd soft NT ND Dressing to be removed Genitalia No blood at perinium --->discharge plan tomorrow --->Ambulation SAMSON WAGNER M.D. Oct 27, 2016 10:10
[2016-10-27 12:48] VITALS: BP 111/62; PULSE 96; RESP 20
[2016-10-27 15:35] VITALS: BP 103/63; PULSE 95; RESP 20
[2016-10-27 19:53] VITALS: BP 97/58; PULSE 98; RESP 18
[2016-10-27] MEDS: IBUPROFEN 600 MG TAB PO SCH (23:55)
[2016-10-28 00:06] VITALS: BP 106/60; PULSE 107; RESP 18
[2016-10-28] MEDS: OXYCODONE/ACETAMINOPHEN (5/325) TAB PO PRN ×2 (00:06→15:06)
[2016-10-28 04:15] VITALS: BP 93/55; PULSE 85; RESP 18
[2016-10-28] MEDS: IBUPROFEN 600 MG TAB PO SCH ×4 (05:34→23:34)
[2016-10-28 08:00] VITALS: BP 108/66; PULSE 83; RESP 18
[2016-10-28 16:00] VITALS: BP_SYST 110; BP_SYST 124; BP_DIAS 67; BP_DIAS 73; PULSE 85; PULSE 94; RESP 18
[2016-10-28] MEDS ORDERED: NA PHOSPHATE/BIPHOS 133 ML ENEMA PR ONE (20:00)
[2016-10-28 20:15] VITALS: BP 98/67; PULSE 93; RESP 20
[2016-10-28] MEDS ORDERED: MAGNESIUM CITRATE 300 ML BTL PO SCH (22:00)
[2016-10-28] MEDS: MAGNESIUM CITRATE 300 ML BTL PO SCH (22:09)
[2016-10-29 04:00] VITALS: BP 100/55; PULSE 80; RESP 19
[2016-10-29] MEDS: IBUPROFEN 600 MG TAB PO SCH ×2 (05:50→13:01)
[2016-10-29 08:10] VITALS: BP 109/63; PULSE 79; RESP 18
[2016-10-29] MEDS: MAGNESIUM CITRATE 300 ML BTL PO SCH (09:00)
[2016-10-29] MEDS ORDERED: DIPHTH/TET/ACEL PERTUSS (ADULT) 0.5 ML VIAL IM* ONE (09:00)
== END 2016-10-29 15:40 | disposition home or self-care (01) | DRG 766 ==
LOC: OBT 20:45 → L-D 20:47 → OBT 22:25 → L-D 22:25 → OBG 10-18 17:05 → L-D 10-26 02:03 → PP1 10-27 00:22
PROVIDERS: ADMIT Obstetrics & Gynecology; ATTEND Obstetrics & Gynecology
PROC: 3E033VJ Introduction of Other Hormone into Peripheral Vein, Percutaneous Approach (ICD-10-PCS; 2016-10-26)
PROC: 10D00Z1 Extraction of Products of Conception, Low, Open Approach (ICD-10-PCS; principal; 2016-10-26 21:15)
PROC: 3E00X4Z Introduction of Serum, Toxoid and Vaccine into Skin and Mucous Membranes, External Approach (ICD-10-PCS; 2016-10-29)
DX: O40.3XX0 Polyhydramnios, third trimester, not applicable or unspecified (principal); O76 Abnormality in fetal heart rate and rhythm complicating labor and delivery; Z23 Encounter for immunization; Z3A.37 37 weeks gestation of pregnancy; Z37.0 Single live birth
CPT/HCPCS: 59025; 76818; 80053; 81001; 84560; 85025; 85610; 85730; 86592; 86900; 86901; 87086; 90715; 94760; G0463; J0290; J0690; J1200; J1885; J2175; J2274; J2370; J2405; J2590; J2765; J3010; J7120

== ENCOUNTER 2018-12-15 20:07 | Emergency (ER) | payer OTHER ==
[~2018-12-15] VITALS: Ht 154.9 cm; Wt 98.7 kg
[~2018-12-15 20:07] MED LIST changes: +CEPH-443 PO; -PRENAT PO
[2018-12-15 20:21] VITALS: BP 135/86; PULSE 77; RESP 18; Ht 154.9 cm; Wt 98.7 kg
== END 2018-12-15 22:17 | disposition home or self-care (01) ==
LOC: FTE 20:07
DX: O90.2 Hematoma of obstetric wound (principal)
CPT/HCPCS: 99283